=== PATIENT | female | born 2000 | race Caucasian/White ===

== ENCOUNTER 2025-01-06 16:08 | Emergency (ER) | payer BC, SELFPAY ==
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
--- OUTSIDE RECORDS SUMMARY | 2025-01-06 16:12 | XMS_ITS | Clinical Summary ---
Author Organization [facility] Address [address] [place] [address] Care Team Providers Care Turf Grower Name Role Phone Aliyah Robles MD Primary Care Provider Allergies Active Allergy Reactions Criticality Noted Date Comments Cephalexin Rash Low 04/10/2018 Medications sertraline (Zoloft) 100 mg tabletIndications :Generalized anxiety disorder with panic attacks Take 1 Tablet (100 mg) by mouth daily. 90 Tablet 2 2 Active hydrOXYzine HCL (ATARAX) 25 mg tabletIndications :Generalized anxiety disorder with panic attacks Take 1 Tablet (25 mg) by mouth 3 times daily as needed for Anxiety or Insomnia. 30 Tablet 1 2 Active Additional Information Patient not taking.Reported on 10/07/2021 busPIRone (BUSPAR) 10 mg tabletIndications :JAVI (generalized anxiety disorder) Take 1 Tablet (10 mg) by mouth 3 times daily. 90 Tablet 2 2 Active ARIPiprazole (ABILIFY) 2 mg tabletIndications :Moderate episode of recurrent major depressive disorder (CMS/HCC) Take 1 Tablet (2 mg) by mouth daily. 90 Tablet 1 2 Active norethindrone-e.e stradioL-iron (Lo Loestrin Fe) 1 mg-10 mcg (24)/10 mcg (2) Tablet per tabletIndications :Encounter for initial prescription of contraceptive pills Take 1 Tablet by mouth daily. 30 Tablet 11 2 Active traZODone (DESYREL) 100 mg tabletIndications :Recurrent severe major depressive disorder with anxiety (CMS/HCC) TAKE 1 TABLET BY MOUTH EVERYDAY AT BEDTIME 90 Tablet 2 2 Active Active Problems Problem Noted Date Diagnosed Date Generalized anxiety disorder with panic attacks 08/06/2021 Mild episode of recurrent major depressive disor jo ann 08/06/2021 Tobacco use 07/24/2021 Immunizations Immunization Administration Dates Next Due (ACTHIB/HIBERIX)(2 MOS-5 YRS /6 WKS-4 YRS) HAEMOPHILUS INFLUENZAE TYPE B VACCINE (HIB), PRP-T CONJUGATE, 4 DOSE, 0.5 ML IM 04/24/2002,07/12/2001,04/22/2001,02/21 (ADACEL/BOOSTRIX)(10 YR UP) TDAP VACCINE, 0.5ML, IM 01/05/2012 (GARDASIL)(9-45 YRS) HUMAN PAPILLOMAVIRUS VACCINE, TYPES 6, 11, 16, 18, QUADRIVALENT (4VHPV), 3 DOSE, IM 10/26/2014,11/10/2013,06/30/2013 (INFANRIX)(6 WKS-6 YRS) DIPT HERIA, TETANUS TOXOIDS, AND ACCELLULAR PERTUSSIS VACCINE (DTAP), 0.5 ML IM 10/05/2005,04/24/2002,07/12/2001,04/22,02/21/2001 (IPOL)(6 WKS AND UP) POLIOVI YANDY VACCINE, INACTIVATED (IPV), 3 DOSE, SUBCUT OR IM 10/05/2005,04/24/2002,04/22/2001,02/21 (M-M-R II/PRIORIX)(12 MO UP) MEASLES, MUMPS AND RUBELLA VIRUS VACCINE, 0.5 ML IM/SUBCUT 10/05/2005,12/21/2001 (MENACTRA)(9 MO-55 YR) MENIN GOCOCCAL POLYSACCHARIDE A, C, Y AND W-135 DIPTHERIA TOXOID CONJUGATE VACCINE, (PF), 0.5ML, IM 01/05/2012 (VARIVAX)(12 MOS UP)VARICELL A VIRUS VACCINE (PF) 0.5 ML, SUB CUT 01/05/2012,12/21/2001 Hepatitis B Vaccine 07/12/2001,01/21/2001,2000 Influenza Seasonal Unspecifi ed Formulation IM 12/27/2015 PREVNAR (PCV13) pneumococcal 13-valent conjugate Vaccine 04/24/2002,07/12/2001,04/22/2001,02/21 Family History Medical History Relation Name Comments Depression Mother Hypertension Mother Relation Name Status Comments Mother Social History Tobacco Use Types Packs/Day Years Used Date Smoking Tobacco: Every Day Cigarettes Smokeless Tobacco: Never Tobacco Cessation:Ready to Q uit: No; Counseling Given: Yes Alcohol Use Standard Drinks/Week Comments Yes 0 (1 standard drink = 0.6 oz pur e alcohol) 1-2/wk Comments No Sex and Gender Information Value Date Recorded Sex Assigned at Not on file Legal Sex Female 11:03 AM CDT Gender Identity Not on file Sexual Orientation Not on file Last Filed Vital Signs Vital Sign Reading Time Taken Comments Blood Pressure 120/84 10/20/2021 1:08 PM CDT Pulse 91 10/20/2021 1:08 PM CDT Temperature 37.1 C (98.7 F) 10/20/2021 1:08 PM CDT Respiratory Rate 18 10/20/2021 1:08 PM CDT Oxygen Saturation 99% 10/20/2021 1:08 PM CDT Inhaled Oxygen Concentration - - Weight 102.3 kg (225 lb 8 oz) 10/20/2021 1:08 PM CDT Height 165.1 cm (5' 5) 10/20/2021 1:08 PM CDT Body Mass Index 37.53 10/20/2021 1:08 PM CDT Plan of Treatment Health Maintenance Due Date Last Done Comments CHLAMYDIA SCREENING (ANNUAL) 11-24 YEARS 12/21/2011 HPV/Cotest (21-29) 2021 DTAP/TDAP/TD VACCINES (7 - T d or Tdap) 01/04/2022 01/05/2012, 10/05/2005, 04/24/2002, Additional history exists CERVICAL CANCER SCREENING 10/20/2024 PAP SMEAR 10/20/2024 10/20/2021 INFLUENZA VACCINE (#1) 2024 12/27/2015 HEPATITIS B VACCINES Completed 07/12/2001, 01/21/2001, 2000 HPV VACCINES Completed 10/26/2014, 10/24, 06/30/2013 Procedures Procedure Name Priority Date/Time Associated Diagnosis Comments CERV/VAG CYTO AGE BASED SCREEN PAP W CT/NG, TRICH Routine 10/20/2021 1:42 PM CDT Screening for cervical cancer from Last 3 Months or Most Recently Relevant to Health Maintenance Results * (ABNORMAL) CERV/VAG CYTO AGE BASED SCREEN PAP W CT/NG, TRICH (10/20/2021 1:42 PM CDT) COMMENT (PAP): [facility] Comment: This order for age-based cervical cancer and STI screening follows ACOG guidelines(PB 168, 140, MPW640). See individual assays for performing site location. CLINICAL INFORMATION [facility] Comment:Information not prov ided LAST MENSTRUAL PERIOD [facility] Comment:INFORMATION NOT PROV IDED PREV PAP: [facility] Comment:INFORMATION NOT PROV IDED PREV BX: [facility] Comment:INFORMATION NOT PROV IDED SOURCE [facility] Comment:Endocervix ADEQUACY: [facility] Comment: Satisfactory for evaluation. Endocervical/transformation zone component present. Age and/or menstrual status not provided GENERAL CATEGORIZATION: (A) [facility] Comment:EPITHELIAL CELL ABNO RMALITY PAP INTERP (A) [facility] Comment: Atypical Squamous Cells of Undetermined Significance (ASC-US) COMMENT (PAP TEST) [facility] Comment: This Pap test has been evaluated with computer assisted technology. COMPLIANCE ANALYST: Agustina George Comment: MARK HADDAD(ASCP) CT Screening Location: [address], [address] [place] [address] PATHOLOGIST [facility] Comment: MD Andres, Board Certified in Anatomic Pathology (Electronic signature) EXPLANATORY NOTE [facility] Comment: EXPLANATORY NOTE: The Pap is a screening test for cervical cancer. It is not a diagnostic test and is subject to false negative and false positive results. It is most reliable when a satisfactory sample, regularly obtained, is submitted with relevant clinical findings and history, and when the Pap result is evaluated along with historic and current clinical information. C TRAC RNA NOT DETECTED NOT DETECTED [facility] N.GONORRHOEAE RNA, TMA NOT DETECTED NOT DETECTED [facility] [place] COMMENT INFECTIOUS DISEASE [facility] [place] Comment: The analytical performance characteristics of this assay, when used to test SurePath(TM) specimens have been determined by [facility]. The modifications have not been cleared or approved by the FDA. This assay has been validated pursuant to the CLIA regulations and is used for clinical purposes. For additional information, please refer to https://[employer].Nano ePrint/faq/JMS283 (This link is being provided for information/ educational purposes only.) TRICHOMONAS VAGINALIS,QUALITAT SWEETIE,PAP VIAL NOT DETECTED NOT DETECTED [facility] [place] Comment: The analytical performance characteristics of this assay have been determined by [facility]. The modifications have not been cleared or approved by the FDA. This assay has been validated pursuant to the CLIA regulations and is used for clinical purposes. For additional information, please refer to http://[employer] ePrint/ faq/Trichomonastma (This link is being provided for information/ educational purposes only.) Test Performed at: [facility] [id number] [id number] Bob Tomlinson D.O., MPH TH1 Genital SWAB OF ENDOCERVIX / Unknown 10/20/2021 1:42 PM CDT 10/21/2021 3:26 AM CDT Toby Sanchez MD PATHOLOGY/CYTOLOGY ORDERABLES Final Result [facility] [phone] [facility] [id number] [id number] from Last 3 Months or Most Recently Relevant to Health Maintenance Insurance Care Teams Turf Grower Relationship Specialty Start Date End Date Aliyah Robles MD PCP - General Family Practice 07/24/21
--- OUTSIDE RECORDS SUMMARY | 2025-01-06 16:12 | XMS_ITS | Encounter Summary ---
Author Organization [facility] Address [address] [facility] [place] [address] Phone Care Team Providers Care Central Office Mechanic Name Role Phone Maira Adhikari MD Primary Care Provider [phone] Reason for Referral * PT/OT/ST (Routine) - Pending Review Specialty Diagnoses / Procedures Referred By Trixie t Referred To Contact Physical Therapy Diagnoses Acute pain of left knee Mary Jo Mancini MD [address] [facility] [address] [place] [address] Phone: tel: fax: [facility] [address] [facility], [address] [address] Phone: tel: fax: Referral ID Status Reason Start Date Expiration Date V isits Requested Visits Authorized [id number] Pending Review 10/17/2024 100 100 Scheduling Instructions Encounter Details Date Type Department Care Team (Late st Contact Info) Description 10/17/2024 Transcribe Orders [facility] [address] [place] [address] Mary Jo Mancini MD [address] [facility] [address] [place] [address] Acute pain of left knee (Primary Dx) Social History Tobacco Use Types Packs/Day Years Used Date Smoking Tobacco: Every Day Cigarettes Alcohol Use Standard Drinks/Week Comments Yes 0 (1 standard drink = 0.6 oz pur e alcohol) drinks once or twice a month. Comments No Sex and Gender Information Value Date Recorded Sex Assigned at Not on file Legal Sex Female 11:17 PM CDT Gender Identity Not on file Sexual Orientation Not on file documented as of this encounter Plan of Treatment Scheduled Referrals Name Type Priority Associated Diagnoses Orde r Schedule PHYSICAL THERAPY REFERRAL Outpatient Referral Routine Acute pain of left knee Expected: 10/17/2024, Expires: 10/17/2025 documented as of this encounter Visit Diagnoses Diagnosis Acute pain of left knee- Primary documented in this encounter Care Teams Central Office Mechanic Relationship Specialty Start Date End Date Maira Adhikari MD PCP - General Internal Medicine 02/10/23 documented as of this encounter
--- OUTSIDE RECORDS SUMMARY | 2025-01-06 16:12 | XMS_ITS | Clinical Summary ---
Author Organization [facility] Address [address] [place] [address] Phone Care Team Providers Care Welding Machine Operator Arc Name Role Phone Maria Adhikari MD Primary Care Provider Allergies Active Allergy Reactions Criticality Noted Date Comments Cephalexin Hives 09/12/2021 Medications SERTRALINE HCL PO Take by mouth. Activ e PROPRANOLOL HCL PO Take by mouth. Activ e HYDROXYZINE HCL PO Take by mouth. Activ e PROMETHAZINE HCL PO Take by mouth. Activ e traMADol (ULTRAM) 50 MG TabletIndicatio ns:Posttraumati c headache Take 1 Tablet by mouth every 8 hours as needed for Moderate or more severe pain. 12 Tablet 2 Active Additional Information Patient not taking.Reported on 03/31/2023 naproxen (NAPROSYN) 500 MG Tablet Take 1 Tablet by mouth 2 times daily (with meals). 60 Tablet 2 Active Additional Information Patient not taking.Reported on 03/31/2023 busPIRone (BUSPAR) 15 MG Tablet Take 15 mg by mouth 3 times daily. 3 Active lamoTRIgine (LaMICtal) 25 MG Tablet Take 25 mg by mouth daily. 3 Active sertraline (ZOLOFT) 100 MG Tablet TAKE 1 AND 1/2 TABLETS BY MOUTH DAILY 3 Active naproxen (NAPROSYN) 500 MG Tablet Take 1 Tablet by mouth 2 times daily (with meals). 60 Tablet Active Additional Information Patient not taking.Reported on 03/31/2023 chlordiazePOXID E (LIBRIUM) 25 MG Capsule Take 25 mg by mouth 3 times daily as needed. Active lisinopril-hydr oCHLOROthiazide (PRINZIDE, ZESTORETIC) 10-12.5 MG Tablet Take 1 Tablet by mouth daily. Active Encounters Date Type Department Care Team Description 10/17/2024 Transcribe Orders [facility] [address] [place] [address] Mary Jo Mancini MD Acute pain of left knee (Primary Dx) from Last 3 Months Social History Tobacco Use Types Packs/Day Years Used Date Smoking Tobacco: Every Day Cigarettes Tobacco Cessation:Ready to Q uit: Not Asked; Counseling Given: Not Answered Alcohol Use Standard Drinks/Week Comments Yes 0 [...] Sign Reading Time Taken Comments Blood Pressure 146/77 09/03/2022 1:58 AM CDT Pulse 87 09/03/2022 1:58 AM CDT Temperature 36.6 C (97.9 F) 09/03/2022 1:58 AM CDT Respiratory Rate 18 09/03/2022 1:58 AM CDT Oxygen Saturation 97% 09/03/2022 1:58 AM CDT Inhaled Oxygen Concentration - - Weight 111.1 kg (245 lb) 09/03/2022 1:58 AM CDT Height 165.1 cm (5' 5) 09/03/2022 1:58 AM CDT Body Mass Index 40.77 09/03/2022 1:58 AM CDT Plan of Treatment Health Maintenance Due Date Last Done Comments Hepatitis C Virus (HCV) Screening 2000 Pap Smear 2021 Influenza Immunization (#1) 2024 12/27/2015 SARS-COV-2 Immunization ( season) 2024 05/14/2021, 04/23/2021 Respiratory Syncytial Virus (RSV) Immunization (Adult) (1 - 1-dose 75+ series) 12/21/2075 Hepatitis B Immunization Completed 002, 07/12/2001, 01/21/2001, Additional history exists Pneumococcal Immunization Combined Aged Out 04/24/2002, 07/12/2001, 04/22/2001, Additional history exists No longer eligible based on patient's age to complete this topic Meningococcal Immunization (ACWY) Aged Out 01/05/2012 No longer eligible based on patient's age to complete this topic DTaP/Tdap/Td Immunization Discontinued 2023, 01/05/2012, 10/05/2005, Additional history exists TdaP Immunization Completed 05/18/2023, 01/05/2012 Human Papillomavirus (HPV) Immunization Completed 04/21/2024, 10/26/2014, 11/10/2013, Additional history exists Rotavirus Immunization Aged Out No lo nger eligible based on patient's age to complete this topic [place] Care Teams Welding Machine Operator Arc Relationship Specialty Start Date End Date Maira Adhikari MD PCP - General Internal Medicine 02/10/23
[2025-01-06 16:15] VITALS: BP 172/89; PULSE 78; RESP 16; TEMP 36.8; O2SAT 100
[2025-01-06 16:31] LABS: EDSTREPNEGPOS1 Negative (Negative)
[2025-01-06 16:39] LABS: EDSTREPNEGPOS1 Negative (Negative)
--- NOTE | 2025-01-06 16:50 | ED_ITS ---
HPI - URI/Sore Throat General Chief Complaint: Upper Respiratory Infection Stated Complaint: throat hurts Time Seen by Provider: 01/06/25 16:21 Source: patient and RN notes reviewed Mode of arrival: ambulatory Limitations: no limitations History of Present Illness HPI Narrative: Patient presents today with a 2 day history of sore throat, nasal congestion, rhinorrhea, mild cough, headache. She had 1 episode of vomiting yesterday as well. Currently rates her pain 7/10 and has tried no frvi-fun-ulceksi medication for symptoms prior to arrival. Reports multiple sick contacts with friends and coworkers. Related Data Home Medications ?Medication ?Instructions ?Recorded ?Confirmed ?Last Taken ?Type levonorgestrel (Mirena) 1 device intrauterine ONCE 0 01/06/25 Unknown History trazodone 100 mg tablet mg 01/06/25 Unknown History Allergies Allergy/AdvReac Type Severity Reaction Status Date / Time cephalexin (From Keflex) Allergy Intermediate Hives Verified 01/06/25 16:24 [facility] Past Medical History Medical History (Updated 01/06/25 @ 17:00 by Anneliese Mathew, [facility], ) Hypertension Comments At time of signature, I have reviewed and agree with nursing past medical, s urgical, social and family history unless otherwise noted. Please see nursing chart for further information. There is no relevant family history pertinent to the presenting complaint Exam Narrative: GENERAL: Well-appearing, well-nourished, and in no acute distress. HEAD: Normocephalic, atraumatic. EYES: EOMI. No redness or drainage. Conjunctivae normal. ENT: Mucous membranes pink and moist. Nares mildly congested with rhinorrhea. TMs normal bilaterally. Throat very mildly erythematous without edema or exudate. Uvula midline. NECK: Normal AROM. Supple. Mild bilateral anterior cervical chain lymphadenopathy CHEST: No respiratory distress. Clear to auscultation. HEART: Regular rate and rhythm. No murmur appreciated. EXTREMITIES: Normal range of motion. No edema. SKIN: Warm, dry, no rash. Capillary refill normal. Normal skin turgor. NEURO: No focal deficits. Alert and oriented x3. Gait steady. PSYCH: Normal affect. No signs of depression or anxiety. Course Course Level of Care: Express Care Visit Vital Signs Vital signs: Vital Signs Temperature 98.3 F 01/06/25 16:15 Pulse Rate 78 01/06/25 16:15 Respiratory Rate 16 01/06/25 16:15 Blood Pressure 172/89 H 01/06/25 16:15 Pulse Oximetry 100 01/06/25 16:15 Oxygen Delivery Room Air 01/06/25 16:15 Temperature 98.3 F 01/06/25 16:15 Pulse Rate 78 01/06/25 16:15 Respiratory Rate 16 01/06/25 16:15 Blood Pressure 172/89 H 01/06/25 16:15 Pulse Oximetry 100 01/06/25 16:15 Oxygen Delivery Room Air 01/06/25 16:15 Reviewed MDM - URI/Sore Throat MDM Narrative Medical decision making narrative: 24-year-old female patient presents today with a 2 day history of upper respiratory symptoms in 1 episode of vomiting yesterday. No OTC treatment prior to arrival. Multiple sick contacts. Upon exam, patient has a mildly erythematous throat and some nasal congestion with rhinorrhea. Rapid strep negative. Culture pending. Symptoms likely viral in etiology. Discussed kmhw-wqk-ltebygd medication use and duration of illness. No prescription medications indicated at this time. Anticipatory guidance given. Work note given upon request. Vital signs stable with elevated blood pressure. Patient has been on blood pressure medication in the past but has been out for the last several months. She has an appointment with her PCP this week for follow-up. Differential Diagnosis Differential diagnosis: Likely upper respiratory infection, viral infection, pharyngitis and other (Strep throat) Lab Data Attestation: I reviewed the patient's lab results. Labs: Lab Results 01/06/25 01/06/25 Range/Units 16:20 16:29 POC Grp A Strep Screen Negative Negative (Negative) Critical Care Time Critical Care Time Critical Care Time: No Discharge Plan Discharge Clinical Impression: Upper respiratory infection Qualifiers: URI type: unspecified URI Qualified Code(s): J06.9 - Acute upper respiratory infection, unspecified Patient Disposition: Home Condition: Stable Instructions: Upper Respiratory Infection (DC) Additional Instructions: Your rapid strep swab was negative today at [facility]. You will be notified in a few days if the culture comes back positive for strep, and appropriate antibiotics will be called in for you at that time. Your symptoms are likely due to a viral illness, which is not treated with antibiotics. Viral symptoms can be present for up to 7-10 days. Take Tylenol or ibuprofen for fever or pain. Rest and stay hydrated. Follow up with your PCP in 7 days if symptoms are not improving. Go to the ER immediately if you have any difficulty breathing or swallowing. Your blood pressure was elevated above 120/80 today at Urgent Care. This puts you above the threshold for follow up. Please schedule a followup visit with your personal physician as soon as possible, for further evaluation and treatment. Even blood pressure exceeding 120/80 may indicate pre-hypertension. Patient Language: Azeri Prescriptions: No Action trazodone 100 mg tablet Mirena 21 mcg/24hr (up to 8 yrs) 52 mg intrauterine device 1 device intrauterine ONCE Rx Instructions: as a single dose Follow-up/Referrals: PHYSICIAN NOT ON STAFF,NONSTAFF [Primary Care Provider] Stand Alone Forms: Work/School Release IP Time of Disposition: 16:36
== END 2025-01-06 16:40 | disposition home or self-care (01) ==
PROVIDERS: Emergency Provider Nurse Practitioner
DX: J06.9 Acute upper respiratory infection, unspecified (principal); I10 Essential (primary) hypertension
CPT/HCPCS: 87081; 87880; 99203; G0463

== ENCOUNTER 2025-02-22 17:42 | Emergency (ER) | payer BC, SELFPAY ==
--- NOTE | 2025-02-22 17:46 | ED_ITS ---
HPI - URI/Sore Throat General Chief Complaint: Upper Respiratory Infection Stated Complaint: URI Symptoms Time Seen by Provider: 02/22/25 18:00 Source: patient, RN notes reviewed and old records reviewed Mode of arrival: ambulatory Limitations: no limitations History of Present Illness HPI Narrative: 24-year-old female presents to the [facility] with complaints of headache, congestion, sore throat for 2 days. Has taken ibuprofen. No other treatment prior to arrival. Related Data Home Medications ?Medication ?Instructions ?Recorded ?Confirmed ?Last Taken ?Type levonorgestrel (Mirena) 1 device intrauterine ONCE 0 01/06/25 Unknown History trazodone 100 mg tablet mg 01/06/25 Unknown History lisinopril 10 tablet 02/22/25 Unknown His tory mg-hydrochlorothiazide 12.5 mg tablet Allergies Allergy/AdvReac Type Severity Reaction Status Date / Time cephalexin (From Keflex) Allergy Intermediate Hives Verified 02/22/25 17:44 Review of Systems Review of Systems: All systems reviewed & are unremarkable except as noted in HPI and below Constitutional: Constitutional: Reports as per HPI ENT: Reports as per HPI Cardiovascular: Cardiovascular: Reports no additional cardiovascular complaints, Denies chest pain and Denies dyspnea Respiratory: Respiratory: Reports no additional respiratory complaints, Denies chest congestion, Denies cough and Denies dyspnea Musculoskeletal: Musculoskeletal: Reports no additional musculoskeletal complaints Integumentary/Breasts: Skin/Breast: Reports system reviewed and no additional complaints, except as docu [facility] Past Medical History Medical History Hypertension Comments At the time of my signature, I reviewed and agree with the nursing past medical, surgical, social, and family history. There is no relevant family history pertinent to the patient complaint. Exam Const: General: cooperative, healthy appearing, comfortable, no acute distress, well developed, alert and well nourished Nutritional Appearance: well nourished and obese Orientation/consciousness: patient oriented x3 Limitations: no limitations HENMT: Head: normal to inspection Ears: hearing grossly normal bilaterally, external ears normal, TM's normal bilaterally, EAC's normal, mastoids normal and no periauricular adenopathy Face and sinus: normal facial exam, sinuses nontender and face symmetric Mouth: Yes Normal oral and palatal mucosa present, Yes lip normal, Yes tongue normal and Yes moist mucous membranes Throat: posterior oropharynx normal, uvula midline, tonsils absent and no uvular edema Eyes: General: appearance normal, both eyes and all related structures Alignment and Position: alignment normal Neck: Neck: normal visual inspection, full ROM, no lymphadenopathy and no meningeal signs Chest: Chest palpation & inspection: normal inspection of the chest Resp: Effort & Inspection: normal respiratory effort and able to speak in complete sentences Auscultation: clear to auscultation bilaterally, no crackles, no rales, no rhonchi and no wheezes Cardio: Rate: regular rate Skin: General skin exam: normal color and no rashes or lesions noted Neuro: General: patient oriented x3, gait normal, moves all extremities and no meningeal signs Cognition (Neuro): normal cognition Speech: normal speech Gait exam (Neuro): Normal gait present Extrem: General: normal to inspection, full ROM, capillary refill normal and normal gait Psych: Appearance: grossly normal and well kempt Mental Status: mental status grossly normal Speech and movement: Normal speech and movement present and Clear speech present Affect: normal affect Attitude: cooperative Course Course Level of Care: Express Care Visit Vital Signs Vital signs: Vital Signs Temperature 98.7 F 02/22/25 17:52 Pulse Rate 104 H 02/22/25 17:52 Respiratory Rate 18 02/22/25 17:52 Blood Pressure 174/81 H 02/22/25 17:52 Pulse Oximetry 99 02/22/25 17:52 Oxygen Delivery Room Air 02/22/25 17:52 Temperature 98.7 F 02/22/25 17:52 Pulse Rate 104 H 02/22/25 17:52 Respiratory Rate 18 02/22/25 17:52 Blood Pressure 174/81 H 02/22/25 17:52 Pulse Oximetry 99 02/22/25 17:52 Oxygen Delivery Room Air 02/22/25 17:52 Reviewed MDM - URI/Sore Throat MDM Narrative Medical decision making narrative: patient sitting in exam room. Patient is nontoxic, vitals stable. Patient presents with URI symptoms for 2 days. Has taken ibuprofen. No other treatment prior to arrival. Patient is flu, COVID and strep were negative will culture strep. No acute findings noted on exam. Work note given upon request Discharge instructions reviewed with patient, as well as provided in writing per nursing staff. The instructions also include specific and strict return/GO TO THE ER as well as f/u information. All questions have been answered, and the patient deny any further questions with discharge and discharge plan. Some parts of this dictation were generated by voice recognition software and may contain typographical and/or grammatical inaccuracies. Differential Diagnosis Differential diagnosis: Likely upper respiratory infection, otitis media, sinusitis, viral infection, bronchitis, influenza and pharyngitis Lab Data Labs: Lab Results 02/22/25 Range/Units 18:03 POC Influenza A Ag Negative (Negative) POC Influenza B Ag Negative (Negative) POC SARS CoV-2 Ag Negative (Negative) POC Grp A Strep Screen Negative (Negative) reviewed Critical Care Time Critical Care Time Critical Care Time: No Discharge Plan Discharge Clinical Impression: Upper respiratory infection Patient Disposition: Home Condition: Stable Instructions: Upper Respiratory Infection (ED) Additional Instructions: today your blood pressure was 174/81. Please follow-up with primary care provider within 2 weeks to have this rechecked. Your rapid strep swab was negative today at [facility]. A throat culture will be sent to the laboratory for further testing. If the test is positive, you will receive a phone call within 48 hours and an appropriate antibiotic will be initiated at that time. Your rapid COVID test were negative Your rapid flu test was negative Your symptoms are likely due to a viral illness, which is not treated with antibiotics. Typically viral infections last 7-10 days, can linger for couple of weeks. It is very important to treat your symptoms. Drink plenty of water, Gatorade, Pedialyte, ice pops or Jell-O. -Alternate Tylenol and Motrin per package directions for fever or pain. You can alternate every 4 hours -Antihistamine medication such as Zyrtec/Claritin/Ana during the day can help improve symptoms. -doing daily nasal irrigations can help relieve pressure your sinuses. Things like a Neti pot -Use Flonase twice a day for 5 days then daily to help reduce the inflammation and dry up your sinuses. -You can also use Coricidin HBP orMucinex. Be sure to drink plenty of water with this medication at least 8 ounces with every dose and it is important to drink 8 to 10 glasses of water per day. Water is a natural decongestant -Eat and drink things that are easy to swallow, like tea or soup, or popsicles. -Oral rinses such as: Salt water gargles and/or may use topical anesthetic (eg. Chloraseptic spray) or lozenges to relieve dryness or throat pain). -Frequent hand washing or hand acid dipper is one of the best ways to prevent spread of infection. -Using a vaporizer or humidifier at night will also help thin secretions and help with coughing up phlegm. -Follow up with primary care provider in 7-10 days if condition is not improving - For new or worsening symptoms go directly to the nearest ER Patient Language: Romanian Prescriptions: No Action lisinopril-hydrochlorothiazide 10-12.5 mg tablet trazodone 100 mg tablet Mirena 21 mcg/24hr (up to 8 yrs) 52 mg intrauterine device 1 device intrauterine ONCE Rx Instructions: as a single dose Follow-up/Referrals: UNKNOWN,DOCTOR [Non-Staff] Stand Alone Forms: Work/School Release IP Time of Disposition: 18:06
--- OUTSIDE RECORDS SUMMARY | 2025-02-22 17:48 | XMS_ITS | Clinical Summary ---
Author Organization [facility] Address [address] [place] [address] Phone Care Team Providers Care Tailor Helper Name Role Phone Maira Adhikari MD Primary Care Provider Allergies Active [...] Take 1 Tablet by mouth daily. Active Social History Tobacco Use Types Packs/Day Years [...] [place] Care Teams Tailor Helper Relationship Specialty Start Date End Date Maira Adhikari MD PCP - General Internal Medicine 02/10/23
--- OUTSIDE RECORDS SUMMARY | 2025-02-22 17:48 | XMS_ITS | Clinical Summary ---
Author Organization [facility] Address [address] [place] [address] Care Team Providers Care Oral And Maxillofacial Surgery Resident Name Role Phone Aliyah Robles MD Primary [...] Health Maintenance Due Date Last Done Comments HPV/Cotest (21-29) 2021 DTAP/TDAP/TD VACCINES (7 - [...] 1:42 PM CDT) COMMENT (PAP): [facility] Comment: This order for age-based cervical cancer and STI screening follows ACOG guidelines(PB 168, 140, LXF321). See individual assays for performing site location. CLINICAL INFORMATION [facility] Comment:Information not prov ided LAST MENSTRUAL PERIOD [facility] Comment:INFORMATION NOT PROV IDED PREV PAP: [facility] Comment:INFORMATION NOT PROV IDED PREV BX: [facility] Comment:INFORMATION NOT PROV IDED SOURCE [facility] Comment:Endocervix ADEQUACY: [facility] Comment: Satisfactory for evaluation. Endocervical/transformation zone component present. Age and/or menstrual status not provided GENERAL CATEGORIZATION: (A) [facility] Comment:EPITHELIAL CELL ABNO RMALITY PAP INTERP (A) [facility] Comment: Atypical Squamous Cells of Undetermined Significance (ASC-US) COMMENT (PAP TEST) [facility] [place] Comment: This Pap test has been evaluated with computer assisted technology. DYE HOUSE WHEEL OPERATOR: [facility]ust[facility] [place] Comment: MARK HADDAD(ASCP) CT Screening Location: [address], [address] [place] [address] PATHOLOGIST [facility] Comment: MD Andres, Board Certified in Anatomic Pathology (Electronic signature) EXPLANATORY NOTE [facility] Comment: EXPLANATORY NOTE: The Pap is a [...] RNA NOT DETECTED NOT DETECTED [facility] N.GONORRHOEAE RNA, TMA NOT DETECTED NOT DETECTED [facility] COMMENT INFECTIOUS DISEASE [facility] [place] Comment: The analytical performance characteristics of this assay, when used to test SurePath(TM) specimens have been determined by [facility]. The modifications have not been cleared or approved by the FDA. This assay has been validated pursuant to the CLIA regulations and is used for clinical purposes. For additional information, please refer to https://[employer]/faq/RGC163 (This link is being provided for information/ educational purposes only.) TRICHOMONAS VAGINALIS,QUALITAT SWEETIE,PAP VIAL NOT DETECTED NOT DETECTED [facility] [place] Comment: The analytical performance characteristics of this assay have been determined by [facility]. The modifications have not been cleared or approved by the FDA. This assay has been validated pursuant to the CLIA regulations and is used for clinical purposes. For additional information, please refer to http://[employer]/ faq/Trichomonastma (This link is being provided for information/ educational purposes only.) Test Performed at: [facility] [id number] [facility] [place] [address] Bob Tomlinson D.O., MPH TH1 Genital SWAB OF ENDOCERVIX / Unknown 10/20/2021 1:42 PM CDT 10/21/2021 3:26 AM CDT Toby Sanchez MD PATHOLOGY/CYTOLOGY ORDERABLES Final Result [facility] [phone] [facility] [address] [place] [address] from Last 3 Months or Most Recently Relevant to Health Maintenance Insurance [employer] Care Teams Oral And Maxillofacial Surgery Resident Relationship Specialty Start Date End Date Aliyah Robles MD PCP - General Family Practice 07/24/21
--- OUTSIDE RECORDS SUMMARY | 2025-02-22 17:48 | XMS_ITS | Encounter Summary ---
Author Organization [facility] Address [address] [facility] [address] Phone Care Team Providers Care Pens And Pencils Repairer Name Role Phone Maira Adhikari MD Primary Care Provider [phone] Reason for Referral * PT/OT/ST (Routine) - Pending Review Specialty Diagnoses / Procedures Referred By Trixie t Referred To Contact Physical Therapy Diagnoses Acute pain of left knee Mary Jo Mancini MD [address] [facility] [address] [facility] [address] [place] [address] Phone: tel: fax: [facility] [address] [facility], [address] [address] Phone: tel: fax: Referral ID Status Reason Start Date Expiration Date V isits Requested Visits Authorized [id number] Pending Review 10/17/2024 100 100 Scheduling Instructions Encounter Details Date Type Department Care Team (Late st Contact Info) Description 10/17/2024 Transcribe Orders [facility] [address] [place] [address] Mary Jo Mancini MD [address] [facility] [address] [place] [address] Acute pain of left knee (Primary Dx) [...] Primary documented in this encounter Care Teams Pens And Pencils Repairer Relationship Specialty Start Date End Date Maira Adhikari MD PCP - General Internal Medicine 02/10/23 documented as of this encounter
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
[2025-02-22 17:52] VITALS: BP 174/81; PULSE 104; RESP 18; TEMP 37.1; O2SAT 99
[2025-02-22 18:05] LABS: EDCOVIDSCREEN Negative (Negative); EDINFLUASCREEN Negative (Negative); EDINFLUBSCREEN Negative (Negative); EDSTREPNEGPOS1 Negative (Negative)
== END 2025-02-22 18:13 | disposition home or self-care (01) ==
PROVIDERS: Emergency Provider Nurse Practitioner
DX: J06.9 Acute upper respiratory infection, unspecified (principal); I10 Essential (primary) hypertension; Z20.822 Contact with and (suspected) exposure to COVID-19
CPT/HCPCS: 87081; 87426; 87804; 87880; 99213; G0463

== ENCOUNTER 2025-03-29 11:29 | Emergency (ER) | payer BC, SELFPAY ==
[2025-03-29 11:46] VITALS: BP 179/95; PULSE 84; RESP 20; TEMP 36.9; O2SAT 100
--- NOTE | 2025-03-29 12:07 | ED_ITS ---
HPI - URI/Sore Throat General Chief Complaint: Upper Respiratory Infection Stated Complaint: cough/congestion Time Seen by Provider: 03/29/25 12:08 Source: patient, RN notes reviewed and old records reviewed Mode of arrival: ambulatory Limitations: no limitations History of Present Illness HPI Narrative: 24-year-old female presents to the [facility] with cough, congestion for 9 days. Reports runny nose, sneezing and sore throat only in the morning. Had been taking DayQuil and Mucinex. Onset (ago): day(s) (9) Treatments prior to arrival: cold medicine Related Data Home Medications ?Medication ?Instructions ?Recorded ?Confirmed ?Last Taken ?Type levonorgestrel (Mirena) 1 device intrauterine ONCE 0 01/06/25 Unknown History trazodone 100 mg tablet mg 01/06/25 Unknown History lisinopril 10 tablet 02/22/25 Unknown His tory mg-hydrochlorothiazide 12.5 mg tablet Allergies Allergy/AdvReac Type Severity Reaction Status Date / Time cephalexin (From Keflex) Allergy Intermediate Hives Verified 03/29/25 11:39 Review of Systems Review of Systems: All systems reviewed & are unremarkable except as noted in HPI and below Constitutional: Constitutional: Reports as per HPI ENT: Reports as per HPI and Reports sore throat Cardiovascular: Cardiovascular: Reports no additional cardiovascular complaints, Denies chest pain and Denies dyspnea Respiratory: Respiratory: Reports as per HPI, Reports chest congestion, Reports cough and Denies dyspnea Musculoskeletal: Musculoskeletal: Reports no additional musculoskeletal comp laints Integumentary/Breasts: Skin/Breast: Reports system reviewed and no additional complaints, except as docu PMFSH Past Medical History Medical History Hypertension Comments At the time of my signature, I reviewed and agree with the nursing past medical, surgical, social, and family history. There is no relevant family history pertinent to the patient complaint. Exam Const: General: cooperative, healthy appearing, comfortable, no acute distress, well developed, alert and well nourished Nutritional Appearance: well nourished and obese Orientation/consciousness: patient oriented x3 Limitations: no limitations HENMT: Head: normal to inspection Ears: hearing grossly normal bilaterally, external ears normal, TM's normal bilaterally, EAC's normal, mastoids normal and no periauricular adenopathy Face and sinus: normal facial exam Mouth: Yes Normal oral and palatal mucosa present, Yes lip normal, Yes tongue normal and Yes moist mucous membranes Throat: posterior oropharynx normal, uvula midline, postnasal drainage and no uvular edema Eyes: General: appearance normal, both eyes and all related structures Alignment and Position: alignment normal Neck: Neck: normal visual inspection, full ROM, no lymphadenopathy and no meningeal signs Chest: Chest palpation & inspection: normal inspection of the chest Resp: Effort & Inspection: normal respiratory effort and able to speak in complete sentences Auscultation: clear to auscultation bilaterally, no crackles, no rales, no rhonchi and no wheezes Cardio: Rate: regular rate Skin: General skin exam: normal color and no rashes or lesions noted Neuro: General: patient oriented x3, gait normal, moves all extremities and no meningeal signs Cognition (Neuro): normal cognition Speech: normal speech Gait exam (Neuro): Normal gait present Extrem: General: normal to inspection, full ROM, capillary refill normal and normal gait Psych: Appearance: grossly normal and well kempt Mental Status: mental status grossly normal Speech and movement: Normal speech and movement present and Clear speech present Affect: normal affect Attitude: cooperative Course Course Level of Care: Express Care Visit Vital Signs Vital signs: Vital Signs Temperature 98.5 F 03/29/25 11:46 Pulse Rate 84 03/29/25 11:46 Respiratory Rate 20 03/29/25 11:46 Blood Pressure 179/95 H 03/29/25 11:46 Pulse Oximetry 100 03/29/25 11:46 Oxygen Delivery Room Air 03/29/25 11:46 Temperature 98.5 F 03/29/25 11:46 Pulse Rate 84 03/29/25 11:46 Respiratory Rate 20 03/29/25 11:46 Blood Pressure 179/95 H 03/29/25 11:46 Pulse Oximetry 100 03/29/25 11:46 Oxygen Delivery Room Air 03/29/25 11:46 Reviewed MDM MDM Narrative Medical decision making narrative: patient sitting in exam room. Patient is nontoxic, vitals stable except blood pressure elevated. Patient with a history of high blood pressure, is prescribed medication patient presents with URI symptoms for 9 days, discussed most likely viral however due to length of symptoms will prescribe antibiotics patient with postnasal drainage patient is appropriate for outpatient treatment with close follow-up Discharge instructions reviewed with patient, as well as provided in writing per nursing staff. The instructions also include specific and strict return/GO TO THE ER as well as f/u information. All questions have been answered, and the patient deny any further questions with discharge and discharge plan. Some parts of this dictation were generated by voice recognition software and may contain typographical and/or grammatical inaccuracies. Differential Diagnosis Differential Diagnosis: Differential diagnostic considerations for upper respiratory infection include upper respiratory infection, croup, otitis media, sinusitis, viral infection, bronchitis, influenza, pharyngitis, strep, uvulitis.? Critical Care Time Critical Care Time Critical Care Time: No Discharge Plan Discharge Clinical Impression: PND (post-nasal drip), Elevated blood pressure reading Upper respiratory infection Qualifiers: URI type: unspecified URI Qualified Code(s): J06.9 - Acute upper respiratory infection, unspecified Sinusitis Qualifiers: Sinusitis location: unspecified location Chronicity: acute Recurrence: not specified as recurrent Qualified Code(s): J01.90 - Acute sinusitis, unspecified Patient Disposition: Home Condition: Stable Instructions: Upper Respiratory Infection (ED), Acute Bronchitis (ED) Additional Instructions: today your blood pressure was 179/95. please follow-up with your primary care provider within 2 weeks to have this rechecked. Be sure to check the medications you take especially [id number] cold medicine to make sure they are safe with hypertension. It is very important to treat your symptoms. Drink plenty of water, Gatorade, Pedialyte, ice pops or Jell-O. -Alternate Tylenol and Motrin per package directions for fever or pain. You can alternate every 4 hours -Antihistamine medication such as Zyrtec/Claritin during the day can help improve symptoms. -doing daily nasal irrigations can help relieve pressure your sinuses. Things like a Neti pot -Use Flonase twice a day for 5 days then daily to help reduce the inflammation and dry up your sinuses. -You can also use Mucinex. Be sure to drink plenty of water with this medication at least 8 ounces with every dose and it is important to drink 8 to 10 glasses of water per day. Water is a natural decongestant -Eat and drink things that are easy to swallow, like tea or soup, or popsicles. -Oral rinses such as: Salt water gargles and/or may use topical anesthetic (eg. Chloraseptic spray) or lozenges to relieve dryness or throat pain). -Frequent hand washing or hand maintenance aide is one of the best ways to prevent spread of infection. -Using a vaporizer or humidifier at night will also help thin secretions and help with coughing up phlegm. -Follow up with primary care provider in 7-10 days if condition is not improving - For new or worsening symptoms go directly to the nearest ER Patient Language: Urdu Prescriptions: New doxycycline monohydrate 100 mg tablet 100 mg PO BID Qty: 14 0RF No Action lisinopril-hydrochlorothiazide 10-12.5 mg tablet trazodone 100 mg tablet Mirena 21 mcg/24hr (up to 8 yrs) 52 mg intrauterine device 1 device intrauterine ONCE Rx Instructions: as a single dose Follow-up/Referrals: Amy,Jayashree Huertas MD [Primary Care Provider, Unknown] - 2 Weeks Clinical Impression: Elevated blood pressure reading; Upper respiratory infection; Sinusitis Stand Alone Forms: Work/School Release IP Time of Disposition: 12:29
== END 2025-03-29 12:35 | disposition home or self-care (01) ==
PROVIDERS: Emergency Provider Nurse Practitioner; PCP Internal Medicine
DX: J01.90 Acute sinusitis, unspecified (principal); J06.9 Acute upper respiratory infection, unspecified; R09.82 Postnasal drip; I10 Essential (primary) hypertension
CPT/HCPCS: 99213; G0463